=== PATIENT | female | born 1975 | race African-American/Black ===

== ENCOUNTER 2019-10-04 06:19 | Inpatient (IN) | payer OTHER ==
[2019-09-25 16:44] VITALS: BMI 38.0
[2019-10-04] MEDS ORDERED: PROPOFOL 20 ML ONE ×12 (07:47→10:01)
[2019-10-04] MEDS ORDERED: MIDAZOLAM HCL 2 MG/2 ML SINGLE DOSE VIAL ONE (07:47)
[2019-10-04] MEDS ORDERED: SUCCINYLCHOLINE CHLORIDE 200 MG/10 ML SYRINGE ONE (07:47)
[2019-10-04] MEDS ORDERED: ROCURONIUM BROMIDE 50 MG/5 ML SYRINGE ONE (07:47)
[2019-10-04] MEDS ORDERED: LIDOCAINE HCL/PF 2% SDV 5ML VIAL ONE (07:49)
[2019-10-04] MEDS ORDERED: BENZOIN/ALOE VERA/STORAX/TOLU 58 ML BOTTLE ONE (07:50)
[2019-10-04] MEDS ORDERED: HEPARIN NA (PORCINE) 5,000 UNITS/ML 1ML VIAL ONE ×2 (07:50→07:51)
[2019-10-04] MEDS ORDERED: THROMBIN (RECOMBINANT) 5,000 UNIT VIAL TP ONE (07:50)
[2019-10-04] MEDS ORDERED: GELATIN, ABSORBABLE 12-7MM EACH SPONGE TP ONE (07:51)
[2019-10-04] MEDS ORDERED: VANCOMYCIN 1,000 MG VIAL (RESTRICTED TO ID ONLY) ONE (08:47)
[2019-10-04] MEDS ORDERED: SODIUM CHLORIDE 0.9% P/F 10 ML VIAL IJ ONE (08:47)
[2019-10-04] MEDS ORDERED: ceFAZolin SODIUM 1 GM VIAL ONE ×2 (08:47→13:45)
[2019-10-04] MEDS ORDERED: TRANEXAMIC ACID 1000 MG/10 ML VIAL ONE (08:47)
[2019-10-04] MEDS ORDERED: DEXAMETHASONE SOD PHOSPHATE 4 MG/1 ML VIAL ONE (08:53)
[2019-10-04] MEDS ORDERED: ONDANSETRON 4 MG/2 ML VIAL ONE (08:55)
[2019-10-04] MEDS ORDERED: METOPROLOL TARTRATE 5 MG/5 ML VIAL ONE ×2 (09:50→10:15)
[2019-10-04] MEDS ORDERED: hydrALAZINE HCL 20 MG/ML VIAL ONE (11:55)
[2019-10-04] MEDS ORDERED: ONDANSETRON 4 MG/2 ML VIAL IVPUSH PRN ×2 (12:16→12:20)
[2019-10-04] MEDS ORDERED: PROMETHAZINE HCL 25 MG/1 ML VIAL IVPUSH PRN (12:16)
[2019-10-04] MEDS ORDERED: ACETAMINOPHEN 1000 MG/100 ML VIAL (NON FORMULARY) IVPB ONE (12:17)
--- NOTE | 2019-10-04 12:17 | PN ---
Progress Note (short form) - Note Progress Note: 44F s/p C5-C6 anterior cervical discectomy and instrumented fusion POD #0. -Airway observation: In case of emergency, remove anterior cervical spine dressing and pull out running suture; ok to cut suture if needed to decompress hematoma. -Maintain head of bed 30-45 degrees. -Pain medication: per anaesthesia team; oral meds (oxycodone preferred), no WASHROOM OPERATOR ; NO NSAID's. -Start with soft diet; advance diet as tolerated. -DVT PPx: -Mechanical only: KYLE's, SCD's. -Post-op Ancef x 3 doses. -f/u AM labs. -Incentive spirometry. -PT/OT/Rehab, OOB. -PWB B/L UE: 5lbs. -WBAT B/L LE. -B/L UE & LE NV checks. -f/u TOV (8 hours max). -Keep dressing clean & dry. -No heavy lifting (>5 lbs), bending or twisting x 6 months post op. -Care per primary medical hospitalist team. -Discharge planning: f/u [facility] [place] office 10/12/2019; call for appointment; . Landon Schultz MD (Orthopaedic Surgery).
--- NOTE | 2019-10-04 12:19 | OP ---
Operative Note - Note: Operative Date: 10/04/19 Pre-Operative Diagnosis: 1. 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 2. Multi-level cervical axial instability with myofascial pain complex. Severity of illness: 4. Operation: C5-C6 ACDF Implants: Cage: RTI Fortilink 8mm. Plate: Precision Spine Slimplicity 14mm. Screws: 3 x 4.0x12mm, 1 x 4.5x12mm Post-Operative Diagnosis: Same as Pre-op Surgeon: Landon Schultz Cnc Specialist: Catarino Schultz Anesthesiologist/PLAYGROUND AIDE: Yann Davison Anesthesia: General Specimens Removed: C5-C6 ACDF Estimated Blood Loss (mls): 20 Fluid Volume Replaced (mls): 700 (Crystalloid) Operative Report Dictated: Yes
[2019-10-04] MEDS ORDERED: oxyCODONE HCL 5 MG TABLET PO PRN (12:20)
[2019-10-04] MEDS ORDERED: ACETAMINOPHEN INJECTION 100 ML IVPB ONE (12:26)
[2019-10-04] MEDS ORDERED: LACTATED RINGERS SOLUTION 1,000 ML IV SCH ×2 (12:30)
[2019-10-04] MEDS ORDERED: diazePAM 5 MG TABLET PO ONE (13:12)
[2019-10-04] MEDS: ceFAZolin 2 GRAM PREMIX BAG IVPB SCH ×2 (14:00→20:41)
[2019-10-04] MEDS ORDERED: oxyCODONE HCL 5 MG TABLET ONE ×2 (14:13→14:21)
[2019-10-04] MEDS: LIDOCAINE 5% TOPICAL PATCH TP SCH (14:15)
[2019-10-04] MEDS: oxyCODONE HCL 5 MG TABLET PO PRN ×2 (16:33→23:33)
--- NOTE | 2019-10-04 18:02 | HP ---
HISTORY OF PRESENT ILLNESS: 44 year-old female with a PMH significant for obesity, chronic pain, and cervicalgia s/p C5-C6 anterior cervical discectomy and instrumented fusion with Dr. Landon Schultz earlier today. 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 Smoking: never Alcohol: 2 glasses wine weekly Drugs: no Family history: Father with DM and HTN Allergies No Known Allergies Allergy (Verified 09/25/19 16:49) HOME MEDICATIONS: Home Medications Medication Instructions Recorded NK [No Known Home Medication] 09/25/19 REVIEW OF SYSTEMS CONSTITUTIONAL: Absent: fever, chills, diaphoresis, generalized weakness, malaise, loss of appetite, weight change HEENT: Absent: rhinorrhea, nasal congestion, throat pain, throat swelling, difficulty swallowing, mouth swelling, ear pain, eye pain, visual changes CARDIOVASCULAR: Absent: chest pain, syncope, palpitations, irregular heart rate, lightheadedness , peripheral edema RESPIRATORY: Absent: cough, shortness of breath, dyspnea with exertion, orthopnea, wheezing, stridor, hemoptysis GASTROINTESTINAL: Absent: abdominal pain, abdominal distension, nausea, vomiting, diarrhea, constipation, melena, hematochezia GENITOURINARY: Absent: dysuria, frequency, urgency, hesitancy, hematuria, flank pain, genital pain MUSCULOSKELETAL: Absent: myalgia, arthralgia, joint swelling, back pain, neck pain SKIN: Absent: rash, itching, pallor HEMATOLOGIC/IMMUNOLOGIC: Absent: easy bleeding, easy bruising, lymphadenopathy, frequent infections ENDOCRINE: Absent: unexplained weight gain, unexplained weight loss, heat intolerance, cold intolerance NEUROLOGIC: Absent: headache, focal weakness or paresthesias, dizziness, unsteady gait, seizure, mental status changes, bladder or bowel incontinence PSYCHIATRIC: Absent: anxiety, depression, suicidal or homicidal ideation, hallucinations. PHYSICAL EXAMINATION Vital Signs - 24 hr 10/04/19 10/04/19 14:15 14:25 Temperature 98.2 F Pulse Rate 86 86 Respiratory 17 17 Rate Blood Pressure 125/74 125/74 O2 Sat by Pulse 100 100 Oximetry (%) GENERAL: Awake, alert, and fully oriented, in no acute distress. HEAD: Normal with no signs of trauma. EYES: Pupils equal, round and reactive to light, extraocular movements intact, sclera anicteric, conjunctiva clear. EARS, NOSE, THROAT: Ears normal, nares patent, oropharynx clear without exudates. Moist mucous membranes. Voice is soft, no hoarseness LUNGS: Breath sounds equal, clear to auscultation bilaterally. No wheezes, and no crackles. No accessory muscle use. HEART: Regular rate and rhythm, normal S1 and S2 ABDOMEN: Soft, nontender, not distended, MUSCULOSKELETAL: Normal range of motion at all joints. No bony deformities or tenderness. UPPER EXTREMITIES: 2+ pulses, warm, well-perfused. No cyanosis. No clubbing. No peripheral edema. LOWER EXTREMITIES: 2+ pulses, warm, well-perfused. No calf tenderness. No peripheral edema. NEUROLOGICAL: Cranial nerves II-XII intact. Normal speech. Laboratory Results - last 24 hr 10/04/19 07:12 POC Urine HCG, Qual Negative Pre op BUN 24 Cr 0.66 Hgb 12.9 Intra op Cefazolin 2g; Vanc x 1g EBL 20ccs LR 700ccs ASSESSMENT/PLAN: 44 year-old female with a PMH significant for obesity, chronic pain, and cervicalgia s/p C5-C6 anterior cervical discectomy and instrumented fusion with Dr. Landon Schultz earlier today. C5-C6 anteiror cervical discectomy and instrumented fusion --POD #0 --perioperative antibiotics per surgery --pain management per surgery --bowel regimen FEN Fluids: PO intake adequate Electrolytes: replete as indicated Nutrition: regular diet DVT prophylaxis: OOB, ambulation, SCDs, TEDs, ASA 81mg BID Physical therapy Dispo: continues to require inpatient care. Full code. Visit type - Emergency Visit Emergency Visit: No - New Patient This patient is new to me today: Yes Date on this admission: 10/05/19 - Critical Care Critical Care patient: No
[2019-10-04] MEDS: ACETAMINOPHEN 1000 MG/100 ML VIAL (NON FORMULARY) IVPB SCH (19:35)
[2019-10-04] MEDS: diazePAM 2 MG TABLET PO SCH (20:42)
[2019-10-04] MEDS: LIDOCAINE PATCH REMOVAL MC SCH (22:55)
[2019-10-05] MEDS: ACETAMINOPHEN 1000 MG/100 ML VIAL (NON FORMULARY) IVPB SCH ×2 (01:34→10:00)
[2019-10-05] MEDS: ceFAZolin 2 GRAM PREMIX BAG IVPB SCH (02:18)
[2019-10-05] MEDS: diazePAM 2 MG TABLET PO SCH ×2 (05:47→15:00)
[2019-10-05] MEDS: oxyCODONE HCL 5 MG TABLET PO PRN ×3 (06:21→20:08)
--- NOTE | 2019-10-05 08:24 | PN ---
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 2. Multi-level cervical axial instability with myofascial pain complex. Severity of illness: 4 Patient is alert. Sitting up in bed at 30 degree angle wearing her c-collar as instructed. C/o incisional tenderness / slight dysphagia. Some posterior cervical muscle spasms. Adequate pain control with medications ordered. Started on clear liquid diet and advanced to soft...she is tolerating as per RN. Denies n/v/f/c, CP, palpitations, SAVAGE, parasthesias or dysphonia. Last Vital Signs Temp Pulse Resp BP Pulse Ox 98.8 F 72 18 145/80 100 // 06:00 10/05/19 06:00 10/05/19 06:00 10/05/19 06:00 10/05/ 06:00 Gen: nad. speaking complete sentences without distress. Neck: c-collar in place. dressing c/d/i. no hematoma. trach midline. 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 2. Multi-level cervical axial instability with myofascial pain complex. Severity of illness: 4 1. Cont to wear your c-collar 2. OOB and ambulate with PT 3. Regualr diet 4. Pain management as ordered 5. Muscle relaxers PRN (spasms) 6. Wants to stay another day to manage pain better 7. DC planning 10/06 Above plan discussed with Dr. Landon Schultz and agrees. Code(s): M54.2 - CERVICALGIA (2) Obesity (BMI 30-39.9) Code(s): E66.9 - OBESITY, UNSPECIFIED
[2019-10-05] MEDS: DOCUSATE SODIUM 100 MG CAPSULE (FP) PO SCH ×2 (10:00→21:34)
[2019-10-05] MEDS: LIDOCAINE 5% TOPICAL PATCH TP SCH (10:00)
--- NOTE | 2019-10-05 10:28 | PN ---
Progress Note (short form) - Note Progress Note: S: Pt. complains of neck and back pain. O:VSS AOx3 A/P: POD#1 s/p cervical discectomy No apparent anesthesia complications Cont. current pain regimen
[2019-10-05] MEDS ORDERED: SODIUM CHLORIDE NASAL SPRAY 44 ML BOTTLE NS PRN (11:02)
--- NOTE | 2019-10-05 11:45 | OP ---
DATE OF OPERATION: 10/04/2019 SURGEON: Landon Schultz MD FOOTBALL PAD REPAIRER: Catarino Schultz MD PREOPERATIVE DIAGNOSIS: 1. C5-C6 intervertebral disk disorder with associated A. Myelopathy. B. Radiculopathy. 2. Cervical spinal stenosis with neurogenic claudication. 3. Cervical kyphosis. 4. Segmental instability. POSTOPERATIVE DIAGNOSIS: 1. C5-C6 intervertebral disk disorder with associated A. Myelopathy. B. Radiculopathy. 2. Cervical spinal stenosis with neurogenic claudication. 3. Cervical kyphosis. 4. Segmental instability. SURGICAL PROCEDURE: 1. C5-C6 discectomy & anterior arthrodesis (29985). 2. C5, C6 partial corpectomies (22635, 83952). 3. Insertion of biomechanical device C5-C6 (40532). 4. C5-C6 anterior instrumentation (18565). 5. Bone autograft (59635). 6. Bone allograft (08005). 7. Microsurgical Dissection (84058). IMPLANTS: 1. Cage: FortiLink Tetrafuse #8. 2. Plate: Precision Spine Simplicity 14 mm. 3. Screws: 3 x 4.0x12mm, 1 x 4.5x12mm. ANESTHESIOLOGIST: Yann Davison MD ANESTHESIA: General endotracheal tube anesthesia. POSITION: Supine. INCISION: Right oblique anterior. ESTIMATED BLOOD LOSS: 20cc. INTRAVENOUS FLUID: 700cc. SPECIMENS: C5-C6 disc. DRAINS: None. COMPLICATIONS: None. URINE OUTPUT: See anesthesia record. BACTERIOLOGY: None. CLOSURE: 2-0 Vicryl and 3-0 Biosyn absorbable suture. INDICATIONS: The patient is a 44-year-old female who was indicated for anterior cervical decompression and instrumented fusion symptoms associated with the above listed diagnoses. The patient was identified in the holding area by her arm band. A long discussion was held with the patient regarding the risks, benefits, and alternatives of the above-named procedure. The risks include, but are not limited to: Pain, bleeding, infection, damage to surrounding structures (including nerves, blood vessels, skin, ligaments, tendons, and bone), dysphagia, dysphonia, nerve palsy, wound complications, pseudarthrosis, failure of fusion, failure of hardware/implants/reduction, need for further surgery, blood clots, myocardial infarction, pulmonary embolism, cerebrovascular event, anesthesia complications, neurological injury, loss of function, and . Benefits as mentioned above. Alternatives include no surgery. All questions were answered. The patient understood and agreed to the procedure. Informed consent was obtained, witnessed, and verified. The patient was taken to the operating room after being seen by the anesthesia and nursing staff. PROCEDURE: The patient was brought into the operating room, placed on the OR table and secured with a safety strap. Consent and the operative site was again verified with the patient and nursing and anesthesia staff. Anesthesia was then administered without complications including 2 g of IV Ancef , 1 g of IV vancomycin, and 1 g of TXA. A time-out was then done led by , the attending surgeon. The patient was positioned in the supine position with arms tucked and placed under gentle traction using tape over her shoulders. All bony prominences were very well padded. A bump was placed beneath the scapulae to facilitate extension of the patients neck. A C-arm fluoroscopy unit was positioned perpendicularly to the table and maintained at the level of the head, except when needed. The intended surgical level was confirmed using fluoroscopy, and a deep neck crease in the lines of Landen at this level was targeted for incision. Intra-operative neural monitoring revealed no change between pre- and post- positional SSEP & MEP baseline readings. The operative site was then prepped and draped in the standard sterile fashion using betadine prep and scrub, wiped off with alcohol, and Duraprep applied. Pre-operative imaging was available for intra-operative evaluation. A time-out was again done, and the case began. An oblique anterior incision was made on the right side of the patients neck in the lines of Landen in standard fashion. Dissection was carried through the investing layer of fascia and finger palpation was used to create a plane lateral to the strap muscles between the carotid sheath and the viscera. Next, the esophagus and trachea were visualized as was the carotid sheath. Hand-held retractors were used to retract these structures safely out of the way , allowing direct access to the anterior cervical spine. The prevertebral fascia overlying the anterior cervical spine was then split using peanut swabs. An 18-gauge spinal needle was bent and used to localize the C5-C6 disc space under fluoroscopy. This helped us target the indicated surgical level. Next, the medial borders of the Longus Coli musculature were gently released over the anterolateral borders of the vertebral bodies and disc spaces using monopolar electrocautery. A self-retaining retractor system was used with the teeth of the blades retracting the belly of the longus coli muscles, and with the retractors themselves safely retracting the carotid sheath laterally and viscera medially. One 12mm Graham pin was then placed into the center of the vertebral bodies of C5 and C6. The Graham pin placement was confirmed via fluorscopy. A Graham pin distractor system was applied with no distraction at this stage. Additionally, the distractor barrels served as superior and inferior soft tissue retractors. The microscope was then introduced. Using monopolar electrocautery, the annulus of the C5-C6 disc was incised. The disc was morselized using a curette and excised using a pituitary rongeur. Next, a 40mm smooth tai-tipped symone was used to perform partial corpectomies of the caudal C5 vertebral body and the cephalad C6 vertebral body. This was necessary to facilitate adequate exposure and decompression of the spinal cord. Continuous cold saline solution was utilized throughout all symone work. The resection of most remaining bone, and the posterior longitudinal ligament ( PLL), was achieved utilizing Kerrison rongeur upcuts. A small, angled, ball-tipped probe was utilized to ensure that all PLL complex was free from adhesion to the theca prior to excision. There was no evidence of OPLL. The ball-tipped probe was also used to ensure that the bilateral C5-C6 neuroforaminae were patent. Our decompression of the cervical spine was successfully achieved. At this point, gentle distraction was applied to the Graham pin distractor. Next, trial implants were placed into the defect space and a size 8 RTI Fortilink Tetrafuse cage was then selected to fit the distracted space. The cage was filled with a combination of autologous bone shavings and demineralized bone matrix allograft putty. The cage was then gently tapped into position. This completed the anterior arthrodesis. Graham pin distraction was released, allowing ligamentotaxis to provide a snug interference fit of the cage. This was ensured by using a cage-jordan. A 14-mm plate was utilized with 2 proximal and 2 distal screws measuring 12 mm to provide solid fixation. This, too, was demonstrated with a plate-jordan once all instrumentation was satisfactorily seated. The screws were then locked using the plate-screw locking mechanism. Fluoroscopic images in the AP and lateral plane showed implants to be in good position and with good overall alignment of the cervical spine. Throughout the case, copious irrigation was performed, and hemostasis was assured. The wound was closed primarily using 2-0 Vicryl and 3-0 Biosyn sutures. A sterile compressive dressing was applied. Sponge and needle counts were correct at the end of the case, and I, the attending surgeon, was present and scrubbed throughout the case. The patient was then extubated by the anesthesia staff without incident or complications and was then transferred to the recovery room in stable condition having tolerated the procedure well. OVERALL COMMENTS: Overall the case went well. IOM signals improved from baseline at the end of the case. MD CONSTANCE Carlos/[id number] MTDD
--- NOTE | 2019-10-05 12:51 | PATH ---
Surgical Pathology Report Patient Name: NABILA ESCOBAR Med. Rec. #: [id number] /Age/Gender: 1975 (Age: 44) / F Account: [id number] Location: [facility] MED-SURG Taken: 10/04/2019 Received: 10/04/2019 Reported: 10/05/2019 Physicians: Landon Schultz M.D. Specimen(s) Received DISC C5-6 Clinical History Cervical stenosis and myelopathy Final Diagnosis DISC, C5-6, ANTERIOR CERVICAL DISCECTOMY AND FUSION: BENIGN INTERVERTEBRAL DISC TISSUE AND BONE. Electronically Signed Leann Cortez M.D. Gross Description Received in formalin labeled "C5-6 disc," is a 1.4 x 1.3 x 0.4 cm aggregate of arias fragments of fibrocartilaginous tissue. The specimen is entirely submitted in one cassette. 10/04/201910/04/2019
--- NOTE | 2019-10-05 14:08 | PN ---
Physical Exam: SUBJECTIVE: Patient seen and examined. Pain is significant but presently well- managed with PO meds. Experiencing neck spasms. No difficulty breathing, tolerated clears for breakfast. OBJECTIVE: Vital Signs Period Temp Pulse Resp BP Sys/Reis Pulse Ox Last 24 Hr 98.2 F-99.0 F 71-89 16-19 108-152/61-86 95-100 GENERAL: The patient is awake, alert, and fully oriented, in no acute distress. EARS, NOSE, THROAT: Ears normal, nares patent, oropharynx clear without exudates. Moist mucous membranes. NECK: soft cervical collar removed, anterior neck surgical gauze dressing c/d/i , surrounding area without erythema, fluctuance, +tender LUNGS: Breath sounds equal, clear to auscultation bilaterally. No wheezes, and no crackles. No accessory muscle use. HEART: Regular rate and rhythm, normal S1 and S2 ABDOMEN: Soft, nontender, not distended, MUSCULOSKELETAL: Normal range of motion at all joints. No bony deformities or tenderness. UPPER EXTREMITIES: 2+ pulses, warm, well-perfused. No cyanosis. No clubbing. No peripheral edema. LOWER EXTREMITIES: 2+ pulses, warm, well-perfused. No calf tenderness. No peripheral edema. NEUROLOGICAL: Cranial nerves II-XII intact. Voice is soft, no hoarseness Active Medications Generic Name Dose Route Start Last Admin Trade Name Freq PRN Reason Stop Dose Admin Docusate Sodium 100 mg 10/05/19 10:00 10/05/19 10:00 Colace - PO 100 mg BID RAVI Administration Lactated Ringer's 1,000 mls @ 125 mls/hr 10/04/19 12:30 Lactated Ringers Solution IV ASDIR RAVI Lidocaine 1 patch 10/04/19 14:15 10/05/19 10:00 Lidoderm Patch - TP 1 patch DAILY RAVI Administration Miscellaneous 1 each 10/04/19 22:00 10/04/19 22:55 Lidoderm Patch Removal MC 1 each DAILY@2200 RAVI Administration Ondansetron HCl 4 mg 10/04/19 12:20 Zofran Injection IVPUSH Q6H PRN NAUSEA AND/OR VOMITING Oxycodone HCl 5 mg 10/04/19 12:20 Roxicodone - PO Q4H PRN PAIN LEVEL 1-5 Oxycodone HCl 10 mg 10/04/19 12:20 12/05/19 11:30 Roxicodone - PO 10 mg Q4H PRN Administration PAIN LEVEL 6-10 Sodium Chloride 2 spray 10/05/19 11:02 [place]ard Rand Nasal Rand - NS BID PRN NASAL CONGESTION ASSESSMENT/PLAN 44 year-old female with a PMH significant for obesity, chronic pain, and cervicalgia s/p C5-C6 anterior cervical discectomy and instrumented fusion with Dr. Landon Schultz earlier today. C5-C6 anteiror cervical discectomy and instrumented fusion --POD #1 --perioperative antibiotics per surgery --pain management per surgery --bowel regimen FEN Fluids: PO intake adequate Electrolytes: replete as indicated Nutrition: regular diet DVT prophylaxis: OOB, ambulation, SCDs, TEDs, ASA 81mg BID Physical therapy Dispo: continues to require inpatient care. Full code. Visit type - Emergency Visit Emergency Visit: No - New Patient This patient is new to me today: No - Critical Care Critical Care patient: No
[2019-10-05] MEDS ORDERED: PT OWN MED DRAWER 7, Y5N ONE (16:23)
[2019-10-05] MEDS: LIDOCAINE PATCH REMOVAL MC SCH (21:35)
[2019-10-05] MEDS ORDERED: oxyCODONE HCL 5 MG TABLET PO ONE (23:45)
[2019-10-05] MEDS: ACETAMINOPHEN 325 MG TABLET (FP) PO PRN (23:47)
[2019-10-06] MEDS: diazePAM 5 MG TABLET PO PRN ×2 (01:03→11:40)
[2019-10-06] MEDS: oxyCODONE HCL 10 MG SUSTAINED ACTING TABLET PO SCH ×2 (05:36→09:58)
[2019-10-06] MEDS: ACETAMINOPHEN 325 MG TABLET (FP) PO PRN (05:39)
[2019-10-06] MEDS: oxyCODONE HCL 5 MG TABLET PO PRN ×2 (05:40→11:45)
[2019-10-06 05:41] VITALS: BP 153/81; PULSE 91; TEMP 98.1
[2019-10-06 08:16] LABS: BASO % 0.3 % (0-2.0); EOS % 0.1 % (0-4.5); HEMATOCRIT 35.8 % (32.4-45.2); HEMOGLOBIN 11.7 GM/dl (10.7-15.3); LYMPH % 8.7 % (8-40); MCH 31.2 pg (25.7-33.7); MCHC 32.7 g/dl (32.0-36.0); MEAN CELL VOLUME 95.4 fl (80-96); MEAN PLT VOLUME 9.1 fl (7.5-11.1); MONO % 6.5 % (3.8-10.2); NEUT % 84.4 % (42.8-82.8); PLATELET COUNT 267 K/MM3 (134-434); RBC 3.75 M/mm3 (3.60-5.2); RDW 14.8 % (11.6-15.6); WHITE BLOOD COUNT 13.2 K/mm3 (4.0-10.8)
[2019-10-06 08:23] LABS: ALBUMIN 3.2 g/dl (3.4-5.0); BILIRUBIN,TOTAL 0.6 mg/dl (0.2-1); CALCIUM 8.6 mg/dl (8.5-10); CREATININE 0.5 mg/dl (0.55-1.3); MAGNESIUM 1.8 mg/dL (1.8-2.4); POTASSIUM 3.9 mmol/L (3.5-5.1); TOT PROT 6.6 g/dl (6.4-8.2)
--- NOTE | 2019-10-06 09:54 | PN ---
Progress Note (short form) - Note Progress Note: POD#2 Pt tolerating a diet, sips of clears/applesauce. Oob and ambulating, complaining of pain to upper shoulders/back and throat. Vital Signs Period Temp Pulse Resp BP Sys/Reis Pulse Ox Last 24 Hr 97.9 F-98.2 F 71-91 16-18 108-153/61-81 95-100 GEN: A&0x3, NAD CV; RRR Lungs: CTA b/l Neck: Dressing c/d/i. No neck swelling or hematoma. Soft collar in place. LE: 5/5 dorsi/plantar flexion b/l. No calf tenderness or swelling noted b/l KYLE/ SCDs in place. Upper ext: customer experience intern strength equal b/l 5/5 flexion/extension b/l CBC, BMP // 07:47 12// 07:47 A/P: 44 yo female s/p ACDF C5-6 Plan for discharge to home today OOB/ambulate Discharge instructions completed. D/w Dr. Schultz and the medical team
[2019-10-06] MEDS: DOCUSATE SODIUM 100 MG CAPSULE (FP) PO SCH (09:58)
[2019-10-06] MEDS: LIDOCAINE 5% TOPICAL PATCH TP SCH (09:59)
--- NOTE | 2019-10-06 10:11 | DS ---
Physical Exam: SUBJECTIVE: Patient seen and examined OBJECTIVE: Vital Signs Period Temp Pulse Resp BP Sys/Reis Pulse Ox Last 24 Hr 97.9 F-98.2 F 71-91 16-18 108-153/61-81 95-100 PHYSICAL EXAM GENERAL: The patient is awake, alert, and fully oriented, in no acute distress. HEAD: Normal with no signs of trauma. EYES: PERRL, extraocular movements intact, sclera anicteric, conjunctiva clear. ENT: Ears normal, nares patent, oropharynx clear without exudates, moist mucous membranes. NECK: Trachea midline, full range of motion, supple. LUNGS: Breath sounds equal, clear to auscultation bilaterally, no wheezes, no crackles, no accessory muscle use. HEART: Regular rate and rhythm, S1, S2 without murmur, rub or gallop. ABDOMEN: Soft, nontender, nondistended, normoactive bowel sounds, no guarding, no rebound, no hepatosplenomegaly, no masses. EXTREMITIES: 2+ pulses, warm, well-perfused, no edema. NEUROLOGICAL: Cranial nerves II through XII grossly intact. Normal speech, gait not observed. PSYCH: Normal mood, normal affect. SKIN: Warm, dry, normal turgor, no rashes or lesions noted. LABS Laboratory Results - last 24 hr 10/06/19 10/06/19 07:47 07:47 WBC 13.2 H RBC 3.75 Hgb 11.7 Hct 35.8 MCV 95.4 MCH 31.2 MCHC 32.7 RDW 14.8 Plt Count 267 MPV 9.1 Absolute Neuts (auto) 11.1 Neutrophils % 84.4 H Lymphocytes % 8.7 Monocytes % 6.5 Eosinophils % 0.1 Basophils % 0.3 Sodium 136 Potassium 3.9 Chloride 104 Carbon Dioxide 25 Anion Gap 7 L BUN 8.0 Creatinine 0.5 L Est GFR (CKD-EPI)AfAm 136.42 Est GFR (CKD-EPI)NonAf 117.71 Random Glucose 103 Calcium 8.6 Magnesium 1.8 Total Bilirubin 0.6 AST 27 ALT 18 Alkaline Phosphatase 77 Total Protein 6.6 Albumin 3.2 L HOSPITAL COURSE: Date of Admission:10/04/19 Date of Discharge: 10/06/19 Minutes to complete discharge: 35 Discharge Summary Reason For Visit: OTHER CERVICAL DISC DISPLACEMENT AT C5-C6 LEVEL Current Active Problems Cervicalgia (Acute) Obesity (BMI 30-39.9) (Acute) Condition: Improved - Instructions Disposition: HOME - Home Medications Comprehensive Discharge Medication List: Ambulatory Orders NK [No Known Home Medication] 09/25/19 This patient is new to me today: No Emergency Visit: No Critical Care patient: No - Discharge Referral Referred to [facility] Med P.C[facility] No
== END 2019-10-06 13:13 | disposition home or self-care (01) ==
LOC: FM/S 06:19 → EDBD 08:00 → FM/S 15:36
PROVIDERS: ADMIT Orthopaedic Surgery Adult Reconstructive Orthopaedic Surgery; ATTEND Nurse Practitioner Acute Care
DX: M50.222 Other cervical disc displacement at C5-C6 level (principal)
CPT/HCPCS: 36415; 72050-TC-FY; 76000-TC-FY; 80053; 81025; 83735; 85025; 94760; 97116-GP; 97162-GP; J0131; J1644